=== PATIENT | female | born 1990 | race Caucasian/White ===

== ENCOUNTER → 2021-08-08 | Outpatient (CLI) | payer OTHER ==
[~2021-08-08] MED LIST: ACYC200 PO; BIRTH CONTROL PO; CEPH500 PO; CYCL10 PO; Colace100 MG PO; DOXY100 PO; HYDACE5 PO; HYDMOR4 PO; IBUP800 PO; METR500 PO; MULVITMINE PO; OXYACE5T PO; PROC5 PO; RXHYD5325 PO; RXHYDACE PO; RXHYDMOR2 PO; RXOXYACE PO; YAZ; YAZ BCP
[2021-08-11 04:11] LABS: CHLAMYDIA TRACHOMATIS, NAA Negative (Negative)
== END | disposition home or self-care (01) ==
LOC: LAB SHORT 18:00
PROVIDERS: Obstetrics & Gynecology
DX: Z34.81 Encounter for supervision of other normal pregnancy, first trimester (principal)
CPT/HCPCS: 87491; 87591

== ENCOUNTER 2021-10-27 08:43 | Day surgery (SDC) | payer OTHER ==
[~2021-10-27] VITALS: Ht 157.5 cm; Wt 60.7 kg
--- NOTE | 2021-10-27 12:08 | NUR ---
PT REPORTS ONLY HAVING A SMALL AMT OF DRAINAGE ON HER SREEDHAR PAD. PT GIVEN SREEDHAR PADS PER HER REQ. PT DENIES N/V, DIZZINESS, LIGHTHEADEDNESS. IV OUT WNL, NO OTHER IV'S IN PLACE. PT REPORTS S/O HERE TO PICK HER UP. PT REPORTS FEELING THAT SHE IS READY TO GO HOME. Patient up to Ambulate independently. Gait steady. Discharge instructions reviewed with patient. Patient verbalizes understanding. Copy given to patient to take home. Patient States Post-Procedure ride home has been arranged. Discharged via wheelchair to private car for ride home.
[2021-10-28 12:05] LABS: Performing Lab SYMBIODX; Test Name MOLAR PREGNANCY
--- NOTE | 2021-11-01 11:59 | NUR ---
11/01/21 1159 Maria E Walters VERIFICATIONS: EDIT CHART.
== END 2021-10-27 12:08 | disposition home or self-care (01) ==
LOC: ORSCMMR 08:43 → ORD 08:45 → ORSCMMR 08:45
PROVIDERS: Obstetrics & Gynecology
PROC: 10D17ZZ Extraction of Products of Conception, Retained, Via Natural or Artificial Opening (ICD-10-PCS; principal; 2021-10-27 10:00)
DX: O02.1 Missed abortion (principal)
CPT/HCPCS: 86850; 86900; 86901; 88305; A9270; J1100; J1885; J2210; J2250; J2405; J2704; J2765; J3010; J7120

== ENCOUNTER 2021-12-16 11:21 | Emergency (ER) | payer OTHER ==
[~2021-12-16] VITALS: Ht 160 cm; Wt 56.7 kg
[2021-12-16] MEDS ORDERED: SUPHEDRINE SINU PO (12:13)
[2021-12-16] MEDS ORDERED: Amoxicillin875 MG PO (12:13)
== END 2021-12-16 12:35 | disposition home or self-care (01) ==
LOC: ER 11:21
DX: J32.9 Chronic sinusitis, unspecified (principal); F17.210 Nicotine dependence, cigarettes, uncomplicated
CPT/HCPCS: 99283

== ENCOUNTER → 2022-09-14 | Outpatient (CLI) | payer OTHER ==
[~2022-09-14] MED LIST changes: +Amoxicillin875 MG PO; +SUPHEDRINE SINU PO
[2022-09-17 04:06] LABS: CHLAMYDIA TRACHOMATIS, NAA Negative (Negative)
== END ==
LOC: LAB SHORT 14:30 → LAB 14:30
PROVIDERS: Obstetrics & Gynecology
DX: Z34.81 Encounter for supervision of other normal pregnancy, first trimester (principal); Z3A.00 Weeks of gestation of pregnancy not specified
CPT/HCPCS: 87491; 87591

== ENCOUNTER 2023-04-02 06:53 | Inpatient (IN) | payer OTHER ==
[~2023-04-02] VITALS: Ht 160 cm; Wt 77.0 kg
[2023-04-02] VITALS (21 sets, daily range): BP systolic 96–173; BP diastolic 53–85
[2023-04-02 08:14] LABS: BASOPHILS ABSOLUTE AUTO 0.03 K/mm3 (0.00-0.23); BASOPHILS PERCENT AUTO 0 % (0-2); Hematocrit 29.1 % (33.0-51.0); Hemoglobin 9.1 g/dL (11.5-16.0); IMMATURE GRAN ABSOLUTE AUTO 0.07 K/mm3 (0.00-0.10); IMMATURE GRAN PERCENT AUTO 1 % (0-1); LYMPHOCYTES PERCENT AUTO 19 % (21-46); MONOCYTES ABSOLUTE AUTO 0.66 K/mm3 (0.16-1.47); MONOCYTES PERCENT AUTO 7 % (4-13); Mean Corpuscular HGB 22.9 pg (26.0-34.0); Mean Corpuscular HGB Conc 31.3 g/dL (31.5-36.5); Mean Corpuscular Volume 73 fL (80-100); Mean Platelet Volume 11.5 fL (9.1-12.4); NEUTROPHILS PERCENT AUTO 72 % (41-73); NRBC ABSOLUTE 0.03 K/mm3 (0.00-0.02); NRBC Auto 0.3 /100 WBC (0.0-0.2); Platelet Count 315 K/mm3 (150-400); RDW Coefficient Variation 17.7 % (11.7-14.2); RDW Standard Deviation 46.2 fL (35.1-46.3); Red Blood Cell Count 3.97 M/mm3 (3.80-5.20); White Blood Cell Count 9.82 K/mm3 (4.00-11.30)
[2023-04-02 08:18] LABS: EOSINOPHILS ABSOLUTE AUTO 0.06 K/mm3 (0.00-0.68); EOSINOPHILS PERCENT AUTO 1 % (0-6)
[2023-04-03 03:50] VITALS: BP 131/80
[2023-04-03 06:50] LABS: BASOPHILS ABSOLUTE AUTO 0.04 K/mm3 (0.00-0.23); BASOPHILS PERCENT AUTO 0 % (0-2); EOSINOPHILS ABSOLUTE AUTO 0.05 K/mm3 (0.00-0.68); EOSINOPHILS PERCENT AUTO 0 % (0-6); Hematocrit 27.6 % (33.0-51.0); Hemoglobin 8.4 g/dL (11.5-16.0); IMMATURE GRAN ABSOLUTE AUTO 0.09 K/mm3 (0.00-0.10); IMMATURE GRAN PERCENT AUTO 1 % (0-1); LYMPHOCYTES ABSOLUTE AUTO 2.05 K/mm3 (0.84-5.20); LYMPHOCYTES PERCENT AUTO 15 % (21-46); MONOCYTES ABSOLUTE AUTO 0.82 K/mm3 (0.16-1.47); MONOCYTES PERCENT AUTO 6 % (4-13); Mean Corpuscular HGB 22.8 pg (26.0-34.0); Mean Corpuscular HGB Conc 30.4 g/dL (31.5-36.5); Mean Corpuscular Volume 75 fL (80-100); Mean Platelet Volume 11.2 fL (9.1-12.4); NEUTROPHILS ABSOLUTE AUTO 10.46 K/mm3 (1.96-9.15); NEUTROPHILS PERCENT AUTO 77 % (41-73); Platelet Count 300 K/mm3 (150-400); RDW Coefficient Variation 17.6 % (11.7-14.2); Red Blood Cell Count 3.69 M/mm3 (3.80-5.20); White Blood Cell Count 13.51 K/mm3 (4.00-11.30)
--- NOTE | 2023-04-03 08:09 | NUR ---
baby at breast, will come back and do assessment
[2023-04-03 08:21] VITALS: BP 123/60
--- NOTE | 2023-04-03 09:15 | NUR ---
pt sleeping, put BC, pp depression screen, and healthy start paper work at bedside, fob awake and watching baby for mom
--- NOTE | 2023-04-03 10:28 | NUR ---
pt reported she coughed and her pain is now 10/10 cramping. gave pt tylenol 1000mg that is ordered, motrin not due. offered an ice pack or a heat pad, pt declines both, encouraged to call if changes her mind
--- NOTE | 2023-04-03 11:17 | NUR ---
heat pad to room, pt agreed to try heat pad, reports cramps come and go. so gets better and then worse, even without breast feeding. pt unsure if wants to go home tonight.
[2023-04-03 11:42] VITALS: BP 141/71
[2023-04-03 16:26] VITALS: BP 115/69
[2023-04-03 20:25] VITALS: BP 124/67
[2023-04-04 00:33] VITALS: BP 140/65
[2023-04-04 04:49] VITALS: BP 125/62
[2023-04-04 08:40] VITALS: BP 125/76
[2023-04-04] MEDS ORDERED: PRENATAL TABLE1 EAC2 PO (10:58)
[2023-04-04] MEDS ORDERED: IBUP800 PO (10:58)
[2023-04-04 12:07] VITALS: BP 128/76
--- NOTE | 2023-04-04 12:42 | NUR ---
dc home with instructions, has ppfu for [id number] at 0900. denies any questions, baby was dc'd yesterday
== END 2023-04-04 12:30 | disposition home or self-care (01) | DRG 807 ==
LOC: BC 06:53 → OBS 06:53 → BC 07:01
PROVIDERS: ADMIT Obstetrics & Gynecology
PROC: 10D07Z6 Extraction of Products of Conception, Vacuum, Via Natural or Artificial Opening (ICD-10-PCS; principal; 2023-04-02)
PROC: 0KQM0ZZ Repair Perineum Muscle, Open Approach (ICD-10-PCS; 2023-04-02)
PROC: 3E0R3BZ Introduction of Anesthetic Agent into Spinal Canal, Percutaneous Approach (ICD-10-PCS; 2023-04-02)
PROC: 00HU33Z Insertion of Infusion Device into Spinal Canal, Percutaneous Approach (ICD-10-PCS; 2023-04-02)
DX: O69.1XX0 Labor and delivery complicated by cord around neck, with compression, not applicable or unspecified (principal); Z37.0 Single live birth; O70.1 Second degree perineal laceration during delivery; Z3A.39 39 weeks gestation of pregnancy; Z90.49 Acquired absence of other specified parts of digestive tract; Z98.890 Other specified postprocedural states
CPT/HCPCS: 36415; 51702; 85025; 86850; 86900; 86901; A9270; J1885; J2210; J2405; J2590; J7120

== ENCOUNTER → 2023-08-01 | Outpatient (CLI) | payer OTHER ==
[~2023-08-01] MED LIST changes: +PRENATAL TABLE1 EAC2 PO
== END | disposition home or self-care (01) ==
LOC: PLD 07:35 → LAB SHORT 07:35
DX: D22.5 Melanocytic nevi of trunk (principal)
CPT/HCPCS: 88305

== ENCOUNTER → 2024-03-18 | Outpatient (CLI) | payer OTHER | LOC: LAB 17:00 → LAB SHORT 17:00 | DX: Z12.4 Encounter for screening for malignant neoplasm of cervix (principal) ==

== ENCOUNTER 2025-02-13 15:09 | Emergency (ER) | payer OTHER ==
[~2025-02-13] VITALS: Ht 160 cm; Wt 61.2 kg
[2025-02-13] MEDS ORDERED: Morphine Sulfate 4 MG/1 ML Injection IV ONE ×2 (15:20→15:50)
[2025-02-13] MEDS ORDERED: Propofol 10mg/ml 20 ml Vial (Procedural) IV SCH (15:35)
[2025-02-13] MEDS ORDERED: NS 1,000 ML IV SCH (15:45)
[2025-02-13] MEDS ORDERED: Ondansetron HCl 2 MG / ML 2ML Vial IV ONE (15:50)
[2025-02-13] MEDS ORDERED: HYDROmorphone HCl/Pf 1MG SYR IV ONE (16:20)
[2025-02-13] MEDS ORDERED: FentaNYL Citrate 50 MCG/ML 2 ML Injection IV ONE (16:45)
[2025-02-13] MEDS ORDERED: Ketorolac Tromethamine 15mg Vial IV ONE (17:25)
[2025-02-13] MEDS ORDERED: OXYACE7.5T PO (17:53)
[2025-02-13] MEDS ORDERED: IBUP600 PO (17:53)
[2025-02-13] MEDS ORDERED: ACET500 PO (17:53)
[2025-02-13 18:30] VITALS: BP 132/85
[2025-02-13] MEDS ORDERED: RX Prepack 6 Tabs Oxycodone 5mg UD ONE (18:30)
== END 2025-02-13 19:15 | disposition home or self-care (01) ==
LOC: ER 15:09
DX: S82.851A Displaced trimalleolar fracture of right lower leg, initial encounter for closed fracture (principal); F17.210 Nicotine dependence, cigarettes, uncomplicated; W18.30XA Fall on same level, unspecified, initial encounter
CPT/HCPCS: 27818; 73590; 73600; 73610; 76000; 96374-59; 96375-59; 99152; 99284-25; A9270; J1171; J1885; J2270; J2405; J2704; J3010; J7030

== ENCOUNTER 2025-02-25 11:23 | Day surgery (SDC) | payer OTHER ==
[~2025-02-25] VITALS: Ht 160 cm; Wt 58.3 kg
[~2025-02-25 11:23] MED LIST changes: +ACET500 PO; +Bupivacaine 0.5% W/EPI 1:200000 SDV 30 ML Vial ONE; +IBUP600 PO; +OXYACE7.5T PO
[2025-02-25] MEDS ORDERED: Lactated Ringer's 1,000 ML IV ONE ×2 (11:41→12:11)
[2025-02-25] MEDS ORDERED: CeFAZolin Sodium 2,000 MG VIAL ONE (11:41)
[2025-02-25] MEDS ORDERED: FentaNYL Citrate 50 MCG/ML 2 ML Injection ONE ×2 (11:44→14:27)
[2025-02-25] MEDS ORDERED: propofoL 20 ML IV ONE (11:44)
[2025-02-25] MEDS ORDERED: Midazolam HCl 1MG / ML 2ML Vial ONE ×2 (11:44→12:22)
[2025-02-25] MEDS ORDERED: Lidocaine 2%-Epineph 1:200000 20 ML SDV ONE (11:46)
[2025-02-25] MEDS ORDERED: Bupivacaine 0.5% HCl 5 MG/ML 30MLVIAL ONE (11:46)
[2025-02-25] MEDS ORDERED: Ondansetron HCl 2 MG / ML 2ML Vial ONE ×2 (11:46→14:32)
[2025-02-25] MEDS ORDERED: Dexamethasone Sod Phos 10 MG/ML 1ML VIAL ONE (11:46)
--- NOTE | 2025-02-25 14:20 | NUR ---
02/25/25 1420 Nandini Delvalle RECEIVED REPORT FROM AURA OWENS AND ALISE. PT AROUSABLE TO VERBAL STIMULI UPON ARRIVAL TO PACU. PATIENT ANSWERS QUESTIONS AND FOLLOWS COMMANDS. PT DROWSY. CAP REFILL <3 ON RIGHT FOOT. UNABLE TO PALPATE RIGHT PEDAL PULSE DUE TO DRESSING. TOES WARM, PINK. PT DENIES PAIN OR NAUSEA AT THIS TIME. DRESSING CDI
[2025-02-25] MEDS ORDERED: Metoclopramide HCl 5MG / ML 2ML Vial ONE (14:48)
--- NOTE | 2025-02-25 14:56 | NUR ---
02/25/25 3964 Nandini Delvalle ICE PACK BEHIND RIGHT KNEE. RIGHT FOOT ELEVATED. PATIENT'S MOTHER UPDATED ON STATUS. PATIENT FEELING NAUSEATED - MEDICATION ADMINISTERED. PT DRESSED, BUT WANTS TO REMAIN IN BED UNTIL NAUSEA SUBSIDES. PT REPORTS PAIN IS TOLERABLE AT THIS TIME. VSS.
[2025-02-25] MEDS ORDERED: OxyCODONE 5 mg/Acetamin 325 mg TABLET ONE (15:34)
[2025-02-25 15:52] VITALS: BP 108/69
== END 2025-02-25 15:55 | disposition home or self-care (01) ==
LOC: ORSCSDS 11:23
DX: S82.851A Displaced trimalleolar fracture of right lower leg, initial encounter for closed fracture (principal); W17.89XA Other fall from one level to another, initial encounter
CPT/HCPCS: A9270; C1713; C1769; J0690; J1100; J2250; J2405; J2704; J2765; J3010; J7120